=== PATIENT | female | born 1935 | race Caucasian/White ===

== ENCOUNTER 2022-06-08 10:07 | Outpatient (CLI) | payer OTHER, SELFPAY ==
--- NOTE | 2022-06-08 10:30 | CRLHL7_ITS ---
For Patients: As a result of the Century Cures Act, medical imaging exams and procedure reports are released immediately into your electronic medical record. You may view this report before your referring provider. If you have questions, please contact your health care provider. Indication: PARALYSIS OF VOCAL CORDS AND LARYNX Technique: MRI brain without contrast. Noncontrast sagittal T1 weighted, axial T2 fast spin echo, FLAIR, and diffusion weighted images of the head. Postcontrast images obtained following administration of 15 cc Dotarem IV contrast Comparison: No prior studies available for comparison at this institution. Findings: Mild patchy regions of increased T2 signal within the periventricular and subcortical white matter of both cerebral hemispheres and briseyda. Moderate cerebral and cerebellar parenchymal volume loss. Chronic lacunar infarcts in the left thalamus, left basal ganglia, and right caudate nucleus. Chronic infarcts in the frontal cortex, right greater than left. The ventricles, sulci and gyri are of normal size, shape and contour for age and degree of atrophy. No regions of restricted diffusion. Midline structures are centrally located. No convincing evidence of suspicious intra- or extra-axial fluid collections. Impression: 1. No radiographic evidence of acute intracranial abnormalities. 2. 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 3. Mild supratentorial and infratentorial white matter changes are non-specific but statistically most likely related to small vessel ischemic disease. 4. Moderate cerebral and cerebellar parenchymal volume loss. Dictated by Jacky Toth MD @ 06/08/2022 1:38:42 PM (Electronically Signed)
--- NOTE | 2022-06-08 11:00 | CRLHL7_ITS ---
For Patients: As a result of the Century Cures Act, medical imaging exams and procedure reports are released immediately into your electronic medical record. You may view this report before your referring provider. If you have questions, please contact your health care provider. INDICATION: Paralysis of vocal cords. TECHNIQUE: CT images acquired through the neck following intravenous contrast. COMPARISON: None. FINDINGS: The nasopharynx, oropharynx, hypopharynx, and larynx are widely patent and without enhancing lesions. The left true vocal cord is medialized. Asymmetric fullness of the left aryepiglottic fold, as well as asymmetric enlargement of the left laryngeal ventricle and left piriform sinus. No enhancing lesions in the oral cavity or floor of mouth. The parotid and submandibular glands are unremarkable. No pathologically enlarged lymph nodes. Multinodular thyroid gland, including dominant enhancing nodule in the right thyroid lobe measuring 2.1 cm. Limited images through the brain are without intracranial mass effect. The paranasal sinuses and mastoid air cells are clear. Multilevel cervical spondylosis. No aggressive osseous lesions. Incompletely visualized patchy opacity lower left lung (series 3, image 92). IMPRESSION: 1. Findings of left vocal cord paralysis. 2. Diffusely enlarged, multinodular thyroid gland, including dominant 2.1 enhancing nodule in the right thyroid lobe. Thyroid ultrasound is recommended for further evaluation if not previously performed. 3. No pathologically enlarged lymph nodes. 4. Incompletely visualized patchy opacity in the left lower lung. Chest CT is recommended for further evaluation. Please note that all CT scans at this facility use dose modulation, iterative reconstruction, and/or weight-based dosing when appropriate to reduce radiation dose to as low as reasonably achievable. Dictated by Holger Lee MD @ 06/09/2022 8:51:05 AM (Electronically Signed)
[2022-06-08 11:09] LABS: Creatinine* 0.9 mg/dL (0.5-1.5); Estimated Glomerular Filt Rate 63 ml/min
== END 2022-06-08 10:08 | disposition home or self-care (01) ==
PROVIDERS: Visit Provider Otolaryngology
DX: J38.00 Paralysis of vocal cords and larynx, unspecified (principal)
CPT/HCPCS: 36415; 70491; 70553; 82565; A9575; Q9967